=== PATIENT | male | born 1975 | race American Indian/Alaskan Native ===

== ENCOUNTER 2020-11-29 22:54 | Inpatient (IN) | payer OTHER ==
[2020-11-29] MEDS ORDERED: ACETAMINOPHEN 500 MG TAB PO STA (23:23)
--- NOTE | 2020-11-29 23:24 | Event Note ---
ED Screening Note Date of service: 11/29/20 Time: 23:23 ED Screening Note: c/o PEREZ x 3-4 days +neck pain denies cough or SOB hx of HTN temp 103, pt tachycardic This initial assessment/diagnostic orders/clinical plan/treatment(s) is/are subject to change based on patients health status, clinical progression and re- assessment by fellow clinical providers in the ED. Further treatment and workup at subsequent clinical providers discretion. Patient/guardian urged not to elope from the ED as their condition may be serious if not clinically assessed and managed. Initial orders include: labs blood cultures tylenol
[2020-11-30] LABS: Hematocrit 46.2 % (35.5-45.6); Hemoglobin 15.2 gm/dl (11.8-15.2); Mean Corpuscular HGB Conc 33 % (32-34); Mean Corpuscular Volume 85 fl (84-94); Platelet Count 175 K/mm3 (140-440); Red Blood Count 5.45 M/mm3 (3.65-5.03); Red Cell Distribution Width 14.1 % (13.2-15.2)
[2020-11-30 00:20] LABS: Albumin 4.1 g/dL (3.9-5); Calcium 9.1 mg/dL (8.4-10.2)
[2020-11-30] MEDS ORDERED: ONDANSETRON 4 MG/2 ML INJ IV ONE ×2 (00:33→00:37)
[2020-11-30] MEDS ORDERED: fentaNYL 100 MCG/2 ML INJ IV ONE (00:37)
[2020-11-30] MEDS ORDERED: SODIUM CHLORIDE 0.9% 1000 ML 1,000 ML IV ONE (00:37)
[2020-11-30] MEDS: fentaNYL 100 MCG/2 ML INJ IV ONE ×2 (00:37→00:40)
--- NOTE | 2020-11-30 00:43 | Emergency Department Report ---
HPI - General Chief Complaint: Headache Time Seen by Provider: 11/29/20 23:22 - HPI HPI: Room 25 The patient is a 45-year-old male present with a chief complaint of headache. Patient states for the past 3 to 4 days he has had a constant headache at the calvarium and retro-orbital region. Patient has nausea vomiting in addition to neck pain. Patient denies history of cough. Patient currently gives his pain a score of 10/10. Patient noted to be febrile in triage to 103.2 F ED Past Medical Hx - Past Medical History Hx Hypertension: Yes - Surgical History Past Surgical History?: Yes Additional Surgical History: hernia repair - Family History Family history: no significant - Social History Smoking Status: Former Smoker (None x20 years) Substance Use Type: None (Denies illicit drug use), Alcohol (Occasional) ED Review of Systems ROS: Stated complaint: HEADACHE;SINUS PRESSURE;NAUSEA Other details as noted in HPI Constitutional: fever Eyes: other (Retro-orbital pain) ENT: denies: throat pain Respiratory: denies: cough Cardiovascular: denies: chest pain Endocrine: no symptoms reported Gastrointestinal: nausea, vomiting Genitourinary: denies: dysuria Musculoskeletal: denies: back pain Neurological: headache Physical Exam - Physical Exam Vital Signs: Vital Signs 11/29/20 23:21 Temperature 103.2 F H Pulse Rate 127 H Respiratory 18 Rate Blood Pressure 147/96 O2 Sat by Pulse 95 Oximetry Physical Exam: GENERAL: The patient is well-developed well-nourished male lying on stretcher appearing to be in mild discomfort. [] HEENT: Normocephalic. Atraumatic. Extraocular motions are intact. Patient has moist mucous membranes. NECK: Supple. No meningitic signs are noted. There is no nuchal rigidity CHEST/LUNGS: Clear to auscultation. There is no respiratory distress noted. HEART/CARDIOVASCULAR: Regular. There is no tachycardia. There is no gallop rub or murmur. ABDOMEN: Abdomen is soft, nontender. Patient has normal bowel sounds. There is no abdominal distention. SKIN: There is no rash. There is no edema. There is no diaphoresis. NEURO: The patient is awake, alert, and oriented. The patient is cooperative. The patient has no focal neurologic deficits. The patient has normal speech and gait. Cranial nerves II through XII grossly intact MUSCULOSKELETAL: There is no evidence of acute injury. ED Course Vital Signs 11/29/20 23:21 Temperature 103.2 F H Pulse Rate 127 H Respiratory 18 Rate Blood Pressure 147/96 O2 Sat by Pulse 95 Oximetry - Lumbar Puncture Consent Obtained: verbal consent, written consent Time Out Performed: Yes Indication for Procedure: headache, fever work up Patient Position: Sitting Upright/Leaning F Skin Prep: Povidone-Iodine 1% Local Anesthetic Used: Lidocaine 1% Amount of anesthesia used (mls): 5 Spinal Needle Gauge: 20G Spinal Needle Length: 3.5in Interspace Used: L4-L5 Complications: unable to obtain CSF Patient Tolerated Procedure: no complications ED Medical Decision Making - Lab Data Result diagrams: 11/29/20 23:32 11/29/20 23:32 Laboratory Tests 11/29/20 11/29/20 11/29/20 23:32 23:32 23:32 WBC 7.7 RBC 5.45 H Hgb 15.2 Hct 46.2 H MCV 85 MCH 28 MCHC 33 RDW 14.1 Plt Count 175 Sodium 132 L Potassium 3.4 L Chloride 91.4 L Carbon Dioxide 21 L Anion Gap 23 BUN 20 Creatinine 1.7 H Estimated GFR 53 BUN/Creatinine Ratio 12 Glucose 116 H Lactic Acid 1.30 Calcium 9.1 Total Bilirubin 0.60 AST 39 ALT 40 Alkaline Phosphatase 87 Total Protein 8.4 H Albumin 4.1 Albumin/Globulin Ratio 1.0 - Radiology Data Radiology results: report reviewed (CT head, chest x-ray), image reviewed (CT head, chest x-ray) interpreted by me: Chest [id number] right lung, no definite focal infiltrates. No pneumothorax [facility] [address] [place] [address] Cat Scan Report Signed Patient: THOR BRANNON MR# : [id number] : 1975 Acct:[id number] Age/Sex: 45 / M ADM Date: 11/29/20 Loc: ED Attending Dr: Ordering Physician: FRANCES MULLER MD Date of Service: 11/30/20 Procedure(s): CT head/brain wo con Accession Number(s): [id number] cc: FRANCES MULLER MD CT head without contrast INDICATION : Headache, fever. TECHNIQUE: Axial imaging performed from the skull apex through the skull base without the use of contrast. All CT scans at this location are performed using CT dose reduction for ALARA by means of automated exposure control. COMPARISON: None FINDINGS: Parenchyma: No mass, stroke or hemorrhage. Ventricles: Ventricles are normal in size and appear symmetric. Soft tissues: Soft tissues including the orbits appear normal. Bones: No acute osseous abnormality. Sinuses: Sinuses and mastoid air cells are clear. IMPRESSION: No acute abnormality. Signer Name: Geovany Gaines MD Signed: 11/30/2020 1:20 AM Workstation Name: [id number] Transcribed By: NGOZI Dictated By: Geovany Gaines MD Electronically Authenticated By: Geovany Gaines MD Signed Date/Time: 11/30/20 0120 DD/ 011 TD/TT: Print [facility] [address] [place] [address] XRay Report Signed Patient: THOR BRANNON MR# : [id number] : 1975 Acct:[id number] Age/Sex: 45 / M ADM Date: 11/29/20 Loc: ED Attending Dr: Ordering Physician: FRANCES MULLER MD Date of Service: 11/30/20 Procedure(s): XR chest 1V ap Accession Number(s): [id number] cc: FRANCES MULLER MD Fluoro Time In Minutes: CHEST 1 VIEW 11/30/2020 1:55 AM INDICATION / CLINICAL INFORMATION: Fever. COMPARISON: None available. FINDINGS: SUPPORT DEVICES: None. HEART / MEDIASTINUM: No significant abnormality. Mild widening of the superior mediastinum on the right. LUNGS / PLEURA: No significant pulmonary or pleural abnormality. Lung volumes are diminished. No pleural fluid. ADDITIONAL FINDINGS: No significant additional findings. IMPRESSION: 1. Mildly diminished lung volumes. 2. Mild widening the superior mediastinum on the right. This is likely vascular in origin. Recommend follow-up PA and lateral chest. Signer Name: Geovany Gaines MD Signed: 11/30/2020 2:23 AM Workstation Name: [id number] Transcribed By: ES Dictated By: Geovany Gaines MD Electronically Authenticated By: Geovany Gaines MD Signed Date/Time: 11/30/20222 DD/ 0 TD/TT: Print Cancel - Differential Diagnosis Meningitis, sinusitis, intracranial abscess, headache, URI Critical care attestation.: If time is entered above; I have spent that time in minutes in the direct care of this critically ill patient, excluding procedure time. ED Disposition Clinical Impression: Suspected infectious meningitis, Fever, Headache Disposition: OP ADMIT IP TO THIS HOSP Is pt being admited?: Yes Does the pt Need Aspirin: No Condition: Fair Referrals: PRIMARY CARE,MD [Primary Care Provider] - 3-5 Days Time of Disposition: 02:34 (Hospitalist paged (Dr He))
--- NOTE | 2020-11-30 01:24 | Cat Scan Report ---
CT head without contrast INDICATION : Headache, fever. TECHNIQUE: Axial imaging performed from the skull apex through the skull base without the use of con trast. All CT scans at this location are performed using CT dose reduction for ALARA by means of aut omated exposure control. COMPARISON: None FINDINGS: Parenchyma: No mass, stroke or hemorrhage. Ventricles: Ventricles are normal in size and appear symmetric. Soft tissues: Soft tissues including the orbits appear normal. Bones: No acute osseous abnormality. Sinuses: Sinuses and mastoid air cells are clear. IMPRESSION: No acute abnormality. Signer Name: Geovany Gaines MD Signed: 11/30/2020 1:20 AM Workstation Name: [id number]
[2020-11-30] MEDS ORDERED: cefTRIAXone/NS 2 GM/100 ML 2 GM/100 ML BAG IV ONE (01:29)
[2020-11-30] MEDS ORDERED: VANCOMYCIN/NS 1 GM/250 ML 1 GM/250 ML BAG IV ONE ×2 (01:56→04:00)
--- NOTE | 2020-11-30 02:27 | XRay Report ---
CHEST 1 VIEW 11/30/2020 1:55 AM INDICATION / CLINICAL INFORMATION: Fever. COMPARISON: None available. FINDINGS: SUPPORT DEVICES: None. HEART / MEDIASTINUM: No significant abnormality. Mild widening of the superior mediastinum on the rig ht. LUNGS / PLEURA: No significant pulmonary or pleural abnormality. Lung volumes are diminished. No pleu ral fluid. ADDITIONAL FINDINGS: No significant additional findings. IMPRESSION: 1. Mildly diminished lung volumes. 2. Mild widening the superior mediastinum on the right. This is likely vascular in origin. Recommend follow-up PA and lateral chest. Signer Name: Geovany Gaines MD Signed: 11/30/2020 2:23 AM Workstation Name: [id number]
[2020-11-30] MEDS ORDERED: MAGNESIUM HYDROXIDE (MOM) ORAL LIQD UDC PO PRN (02:57)
--- NOTE | 2020-11-30 03:06 | History and Physical Report ---
History of Present Illness Date of examination: 11/30/20 Date of admission: 11/30/2020 Chief complaint: Headache History of present illness: 45-year-old -[place] male presenting to emergency room today with a 3 to 4-day history of headache which has been constant. Headache is said to pain radiating towards the back of his eyes. He has also had associated nausea and vomiting and some neck pain. On a scale of 10 pain is about 10/10 in severity. Patient denies any blurry vision, no chest pain or shortness of breath, no abdominal pain, no hematuria or dysuria. Patient denies any sick contacts and no recent travel. Denies any contact with anyone with COVID-19. Upon arrival in the emergency room patient had a temperature of about 103.2 F. Work-up in the emergency room today, labs reveals mild hyponatremia of 132 and mild hypokalemia of 3.4. Chest x-ray and CT scan of the head were unremarkable. Attempts were made to do lumbar puncture in the ER which was unsuccessful. Patient is being started on empiric IV antibiotics for possible meningitis. Past History Past Medical History: hypertension Past Surgical History: hernia repair Social history: smoking (Former smoker), alcohol abuse (Occasional alcohol) Family history: no significant family history Medications and Allergies Allergies Allergy/AdvReac Type Severity Reaction Status Date / Time No Known Allergies Allergy Verified 11/29/20 23:31 Active Meds: Active Medications Acetaminophen (Acetaminophen 325 Mg Tab) 650 mg PO Q4H PRN PRN Reason: Pain MILD(1-3)/Fever >100.5/PEREZ Vancomycin HCl (Vancomycin/Ns 1 Gm/250 Ml) 1 gm in 250 mls @ 167.007 mls/hr IV ONCE ONE; Protocol Stop: 11/30/20 03:25 Last Admin: 11/30/20 02:32 Dose: 167.007 mls/hr Documented by: Sodium Chloride (Nacl 0.9% 1000 Ml) 1,000 mls @ 125 mls/hr IV DIRECT TERESA Magnesium Hydroxide (Magnesium Hydroxide (Mom) Oral Liqd Udc) 30 ml PO Q4H PRN PRN Reason: Constipation Morphine Sulfate (Morphine 2 Mg/1 Ml Inj) 2 mg IV Q4H PRN PRN Reason: Pain, Moderate (4-6) Ondansetron HCl (Ondansetron 4 Mg/2 Ml Inj) 4 mg IV Q8H PRN PRN Reason: Nausea And Vomiting Sodium Chloride (Sodium Chloride 0.9% 10 Ml Flush Syringe) 10 ml IV BID TERESA Sodium Chloride (Sodium Chloride 0.9% 10 Ml Flush Syringe) 10 ml IV PRN PRN PRN Reason: LINE FLUSH Review of Systems Constitutional: fever, chills Ears, nose, mouth and throat: no nasal congestion, no sore throat Cardiovascular: no chest pain, no palpitations Respiratory: no cough, no shortness of breath Gastrointestinal: nausea, vomiting, no abdominal pain Genitourinary Male: no dysuria, no hematuria, no nocturia Musculoskeletal: neck pain, no low back pain Integumentary: no rash, no pruritis Neurological: headaches, no confusion Psychiatric: no anxiety, no depression Endocrine: no polyphagia, no polydipsia, no polyuria, no nocturia Exam - Constitutional Vitals: Temp Pulse Resp BP Pulse Ox 103.2 F H 118 H 16 150/80 92 11/29/20 23:21 11/30/20 00:43 11/30/20 01:40 11/30/20 00:43 11/30/20 00:43 General appearance: Present: no acute distress, well-nourished - EENT Eyes: Present: PERRL, EOM intact. Absent: scleral icterus ENT: hearing intact, clear oral mucosa, dentition normal - Neck Neck: Present: supple, normal ROM - Respiratory Respiratory effort: normal Respiratory: bilateral: CTA - Cardiovascular Rhythm: regular Heart Sounds: Present: S1 & S2. Absent: gallop, systolic murmur, diastolic murmur, rub, click - Extremities Extremities: no ischemia, pulses intact, pulses symmetrical, No edema, normal temperature, normal color, Full ROM Peripheral Pulses: within normal limits - Abdominal General gastrointestinal: Present: soft, non-tender, non-distended, normal bowel sounds. Absent: mass - Integumentary Integumentary: Present: clear, warm, dry. Absent: rash - Musculoskeletal Musculoskeletal: strength equal bilaterally - Psychiatric Psychiatric: appropriate mood/affect, intact judgment & insight, memory intact, cooperative - Neurologic Neurologic: CNII-XII intact, no focal deficits, moves all extremities Results - Labs CBC & Chem 7: 11/29/20 23:32 11/29/20 23:32 Labs: Abnormal lab results 11/29/20 11/29/20 Range/Units 23:32 23:32 RBC 5.45 H (3.65-5.03) M/mm3 Hct 46.2 H (35.5-45.6) % Sodium 132 L (137-145) mmol/L Potassium 3.4 L (3.6-5.0) mmol/L Chloride 91.4 L (98-107) mmol/L Carbon Dioxide 21 L (22-30) mmol/L Creatinine 1.7 H (0.8-1.3) mg/dL Glucose 116 H (75-100) mg/dL Total Protein 8.4 H (6.3-8.2) g/dL Assessment and Plan - Patient Problems (1) Suspected infectious meningitis Current Visit: Yes Status: Acute Plan to address problem: Patient placed on empiric IV antibiotics. We will place consult to interventional radiology for lumbar puncture. (2) Headache Current Visit: Yes Status: Acute Plan to address problem: Possibly secondary to suspected meningitis. Patient will be placed on analgesic medication. Will await CSF studies. (3) DVT prophylaxis Current Visit: Yes Status: Acute Plan to address problem: Patient placed on sequential compression device. (4) Full code status Current Visit: Yes Status: Acute
[2020-11-30] MEDS ORDERED: VANCOMYCIN PHARMACY TO DOSE IV SCH (04:00)
[2020-11-30 04:14] LABS: Band Neutrophils # (Manual) 0.2 K/mm3; Total Cells Counted 100
[2020-11-30 04:15] LABS: Anisocytosis 1+; Platelet Estimate Consistent w Auto
[2020-11-30] MEDS ORDERED: POTASSIUM CHLORIDE 10 MEQ 10 MEQ/100 ML BAG IV ONE (05:11)
[2020-11-30] MEDS: SODIUM CHLORIDE 0.9% 1000 ML 1,000 ML IV SCH ×2 (06:11→23:09)
[2020-11-30] MEDS: ACETAMINOPHEN 325 MG TAB PO PRN ×4 (06:12→21:44)
[2020-11-30] MEDS ORDERED: POTASSIUM CHLORIDE ER 20 MEQ TAB PO SCH (08:00)
--- NOTE | 2020-11-30 08:52 | Event Note ---
Date: 11/30/20 Interventional radiology does not perform lumbar punctures, biopsies, paracentesis, or thoracentesis. Please coordinate with diagnostic radiology. Can order with [place] LUMBAR PUNCTURE.
--- NOTE | 2020-11-30 09:57 | Progress Note ---
Assessment and Plan Assessment and plan: Assessment and Plan - Patient Problems (1) Suspected infectious meningitis Current Visit: Yes Status: Acute Plan to address problem: Patient placed on empiric IV antibiotics. We will place consult to interventional radiology for lumbar puncture. (2) Headache Current Visit: Yes Status: Acute Plan to address problem: Possibly secondary to suspected meningitis. Patient will be placed on analgesic medication. Will await CSF studies. (3) DVT prophylaxis Current Visit: Yes Status: Acute Plan to address problem: Patient placed on sequential compression device. (4) Full code status Current Visit: Yes Status: Acute 11/30/20 Patient is seen and examined. Patient complained of headache 8-10 over 10 as stated nausea and some neck pain No blurry vision. No neck rigidity Patient is on Rocephin 2 g IV every 12 hours We will do the blood culture sputum culture Lumbar puncture is ordered. Will await the CSF studies Waiting for ID evaluation Recheck CBC BMP in the morning. History Interval history: Patient is seen and examined Patient chart and medications reviewed Patient complaining of headache 8-10 over 10 as stated nausea vomiting and some neck pain. No blurred vision Vitals are noted Hospitalist Physical - Constitutional Vitals: Temp Pulse Resp BP Pulse Ox 100.8 F H 100 H 20 136/81 99 11/30/20 06:01 11/30/20 06:01 11/30/20 06:01 11/30/20 06:01 11/30/20 06:01 General appearance: Present: no acute distress, well-nourished - EENT Eyes: Present: PERRL, EOM intact ENT: hearing intact, clear oral mucosa - Neck Neck: Present: supple, normal ROM - Respiratory Respiratory effort: normal Respiratory: bilateral: CTA - Cardiovascular Rhythm: regular Heart Sounds: Present: S1 & S2 - Extremities Extremities: no ischemia Peripheral Pulses: within normal limits - Abdominal General gastrointestinal: soft, non-tender, non-distended, normal bowel sounds - Integumentary Integumentary: Present: clear, warm, dry - Psychiatric Psychiatric: appropriate mood/affect, intact judgment & insight - Neurologic Neurologic: CNII-XII intact, moves all extremities - Allied Health Allied health notes reviewed: nursing Results - Labs CBC & Chem 7: 11/29/20 23:32 11/29/20 23:32 Labs: Laboratory Last Values WBC 7.7 K/mm3 (4.5-11.0) 11/29/20 23: RBC 5.45 M/mm3 (3.65-5.03) H 11/29/20 23: Hgb 15.2 gm/dl (11.8-15.2) 11/29/20 23: Hct 46.2 % (35.5-45.6) H 11/29/20 23:32 MCV 85 fl (84-94) 11/29/20 23: MCH 28 pg (28-32) 11/29/20 23: MCHC 33 % (32-34) 11/29/20 23: RDW 14.1 % (13.2-15.2) 11/29/20: Plt Count 175 K/mm3 (140-440) 11/29/20 23: Add Manual Diff Complete 11/29/20 23: Total Counted 100 11/29/20 23:32 Seg Neuts % (Manual) 88.0 % (40.0-70.0) H 11/29/20 23: Band Neutrophils % 3.0 % 11/29/20 23: Lymphocytes % (Manual) 6.0 % (13.4-35.0) L 11/29/20 23: Monocytes % (Manual) 3.0 % (0.0-7.3) 11/29/20: Nucleated RBC % Not Reportable 11/29/20 23: Seg Neutrophils # Man 6.8 K/mm3 (1.8-7.7) 11/29/20 23:32 Band Neutrophils # 0.2 K/mm3 11/29/20 23:32 Lymphocytes # (Manual) 0.5 K/mm3 (1.2-5.4) L 11/29/20 23:32 Abs React Lymphs (Man) 0.0 K/mm3 11/29/20 23:32 Monocytes # (Manual) 0.2 K/mm3 (0.0-0.8) 11/29/20 23: Eosinophils # (Manual) 0.0 K/mm3 (0.0-0.4) 11/29/20 23:32 Basophils # (Manual) 0.0 K/mm3 (0.0-0.1) 11/29/20 23: Metamyelocytes # 0.0 K/mm3 11/29/20 23:32 Myelocytes # 0.0 K/mm3 11/29/20 23:32 Promyelocytes # 0.0 K/mm3 11/29/20 23:32 Blast Cells # 0.0 K/mm3 11/29/20 23:32 WBC Morphology Not Reportable 11/29/20 23:32 Hypersegmented Neuts Not Reportable 11/29/20 23:32 Hyposegmented Neuts Not Reportable 11/29/20 23:32 Hypogranular Neuts Not Reportable 11/29/20 23:32 Smudge Cells Not Reportable 11/29/20 23:32 Toxic Granulation Not Reportable 11/29/20 23:32 Toxic Vacuolation Not Reportable 11/29/20 23:32 Dohle Bodies Not Reportable 11/29/20 23:32 Pelger-Huet Anomaly Not Reportable 11/29/20 23:32 Isabel Rods Not Reportable 11/29/20 23:32 Platelet Estimate Consistent w auto 11/29/20 23:32 Clumped Platelets Not Reportable 11/29/20 23:32 Plt Clumps, EDTA Not Reportable 11/29/20 23:32 Large Platelets Not Reportable 11/29/20 23:32 Giant Platelets Not Reportable 11/29/20 23:32 Platelet Satelliting Not Reportable 11/29/20 23:32 Plt Morphology Comment Not Reportable 11/29/20 23:32 RBC Morphology Not Reportable 11/29/20 23:32 Dimorphic RBCs Not Reportable 11/29/20 23:32 Polychromasia Not Reportable 11/29/20 23:32 Hypochromasia Not Reportable 11/29/20 23:32 Poikilocytosis Not Reportable 11/29/20 23:32 Anisocytosis 1+ 11/29/20 23:32 Microcytosis Not Reportable 11/29/20 23:32 Macrocytosis Not Reportable 11/29/20 23:32 Spherocytes Not Reportable 11/29/20 23:32 Pappenheimer Bodies Not Reportable 11/29/20 23:32 Sickle Cells Not Reportable 11/29/20 23:32 Target Cells Not Reportable 11/29/20 23:32 Tear Drop Cells Not Reportable 11/29/20 23:32 Ovalocytes Not Reportable 11/29/20 23:32 Helmet Cells Not Reportable 11/29/20 23:32 Moss-Dubois Bodies Not Reportable 11/29/20 23:32 [place] Rings Not Reportable 11/29/20 23:32 Estefanía Cells Not Reportable 11/29/20 23:32 Bite Cells Not Reportable 11/29/20 23:32 Crenated Cell Not Reportable 11/29/20 23:32 Elliptocytes Not Reportable 11/29/20 23:32 Acanthocytes (Spur) Not Reportable 11/29/20 23:32 Rouleaux Not Reportable 11/29/20 23:32 Hemoglobin C Crystals Not Reportable 11/29/20 23:32 Schistocytes Not Reportable 11/29/20 23:32 Malaria parasites Not Reportable 11/29/20 23:32 Ranulfo Bodies Not Reportable 11/29/20 23:32 Hem Pathologist Commnt No 11/29/20 23:32 Sodium 132 mmol/L (137-145) L 11/29/20 23:32 Potassium 3.4 mmol/L (3.6-5.0) L 11/29/20 23:32 Chloride 91.4 mmol/L (98-107) L 11/29/20 23:32 Carbon Dioxide 21 mmol/L (22-30) L 11/29/20 23:32 Anion Gap 23 mmol/L 11/29/20 23:32 BUN 20 mg/dL (9-20) 11/29/20 23:32 Creatinine 1.7 mg/dL (0.8-1.3) H 11/29/20 23:32 Estimated GFR 53 ml/min 11/29/20 23:32 BUN/Creatinine Ratio 12 % 11/29/20 23:32 Glucose 116 mg/dL (75-100) H 11/29/20 23:32 Lactic Acid 1.30 mmol/L (0.7-2.0) 11/29/20 23:32 Calcium 9.1 mg/dL (8.4-10.2) 11/29/20 23:32 Total Bilirubin 0.60 mg/dL (0.1-1.2) 11/29/20 23:32 AST 39 units/L (5-40) 11/29/20 23:32 ALT 40 units/L (7-56) 11/29/20 23:32 Alkaline Phosphatase 87 units/L (35-129) 11/29/20 23:32 Total Protein 8.4 g/dL (6.3-8.2) H 11/29/20 23:32 Albumin 4.1 g/dL (3.9-5) 11/29/20 23:32 Albumin/Globulin Ratio 1.0 % 11/29/20 23:32 Microbiology: Microbiology 11/29/20 23:32 Peripheral/Venous Blood Culture - Preliminary Culture in Progress 11/29/20 23:26 Peripheral/Venous Blood Culture - Preliminary Culture in Progress Saravia/IV: Voiding Method Toilet Active Medications - Current Medications Current Medications: Generic Name Dose Route Start Last Admin Trade Name Freq PRN Reason Stop Dose Admin Acetaminophen 650 mg 11/30/20 02:57 11/30/20 06:12 Acetaminophen 325 Mg Tab PO 650 mg Q4H PRN Administration Pain MILD(1-3)/Fever >100.5/PEREZ Sodium Chloride 1,000 mls @ 125 mls/hr 11/30/20 03:00 11/30/20 06:11 Nacl 0.9% 1000 Ml IV 125 mls/hr DIRECT TERESA Administration Ceftriaxone Sodium 2 gm in 100 mls @ 200 mls/hr 11/30/20 14:00 Rocephin/Ns 2 Gm/100 Ml IV Q12H TERESA Protocol Vancomycin HCl 1,750 mg/ 535 mls @ 333.333 mls/hr 11/30/20 16:00 Sodium Chloride IV Q24H TERESA Magnesium Hydroxide 30 ml 11/30/20 02:57 Magnesium Hydroxide (Mom) Oral Liqd Udc PO Q4H PRN Constipation Morphine Sulfate 2 mg 11/30/20 02:57 Morphine 2 Mg/1 Ml Inj IV Q4H PRN Pain, Moderate (4-6) Ondansetron HCl 4 mg 11/30/20 02:57 Ondansetron 4 Mg/2 Ml Inj IV Q8H PRN Nausea And Vomiting Potassium Chloride 40 meq 11/30/20 08:00 11/30/20 09:39 Potassium Chloride Er 20 Meq Tab PO 11/30/20 11:00 40 meq ONCE TERESA Administration Sodium Chloride 10 ml 11/30/20 10:00 11/30/20 09:39 Sodium Chloride 0.9% 10 Ml Flush Syringe IV Not Given BID TERESA Sodium Chloride 10 ml 11/30/20 02:57 Sodium Chloride 0.9% 10 Ml Flush Syringe IV PRN PRN LINE FLUSH Nutrition/Malnutrition Assess - Dietary Evaluation Nutrition/Malnutrition Findings: Nutrition Notes Start: 11/30/20 09:06 Freq: Status: Active Protocol: Document 11/30/20 09:06 FANNY (Rec: 11/30/20 09:07 FANNY [id number]) Nutrition Notes Need for Assessment generated from: senior research manager Initial or Follow up Brief Note Subjective/Other Information RN screen for skin risk. No Agus score or wounds noted in chart. Nutrition Intervention Revisit per MD consult or patient Sign Off request: - Malnutrition Assessment Minimum of two criteria: No physical signs of malnutrition - Attestation Statement I have reviewed and agreed w/ Malnutrition eval & tx plan: Yes
[2020-11-30] MEDS: ONDANSETRON 4 MG/2 ML INJ IV PRN (11:24)
[2020-11-30] MEDS ORDERED: cefTRIAXone/NS 2 GM/100 ML 2 GM/100 ML BAG IV SCH (14:00)
--- NOTE | 2020-11-30 14:25 | Procedure Note ---
Date of procedure: 11/30/20 Pre-op diagnosis: meningitis Post-op diagnosis: same Procedure: flouro guided lumbar puncture Anesthesia: local Surgeon: ANASTASIIA LOBO Estimated blood loss: none Pathology: list (2-3 cc aspirated) Specimen disposition: to lab Condition: stable Disposition: floor
--- NOTE | 2020-11-30 14:32 | Fluoroscopy Report ---
LUMBAR PUNCTURE INDICATION : Meningitis, headache, fever PROCEDURE: The risks (including but not limited to bleeding, infection, and spinal headache) and corine efits were explained to the patient and informed consent was obtained. A time out procedure was perf ormed. The procedure site was prepped and draped in the usual sterile fashion and lidocaine was used for local anesthesia. Under fluoroscopic guidance, a 22-gauge spinal needle was advanced into the L2-3 interlaminar space. The opening pressure was 90 mm H2O. Only approximately 2-3 cc of CSF fluid could be obtained. This wa s placed in 2 separate CSF to 6 and sent to the laboratory for analysis. The patient tolerated the procedure well with no complications. IMPRESSION: Successful lumbar puncture but only 2-3 cc of CSF fluid could be obtained. Opening pressure was 90 mm H20. Fluoroscopic time: 0.8 Number of fluoroscopic images: 1 Signer Name: Abebe Copeland Jr, MD Signed: 11/30/2020 2:27 PM Workstation Name: [id number]
[2020-11-30 14:37] LABS: Appearance,CSF Clear
[2020-11-30 14:39] LABS: Red Blood Cell,CSF 124.3 /mm3 (0-0); White Blood Cell,CSF 10 /mm3 (1-10)
[2020-11-30 14:41] LABS: INR 1.28 (0.87-1.13)
[2020-11-30 14:42] LABS: Partial Thromboplastin Time 34.5 Sec. (24.2-36.6)
--- NOTE | 2020-11-30 15:15 | Consultation ---
History of Present Illness - Reason for Consult Consult date: 11/30/20 R/o meningitis Requesting physician: HEIDE THORNTON - History of Present Illness 45-year-old male without any medical history, admitted on 11/29/2020 secondary to a week history of severe diffuse headache associated with nausea and vomiting several times. Patient also complaining of neck pain. Headache is 10 out of 10 in severity. Patient denies any sick contact, recent travel, insect bites. Patient denies any drug, tobacco or alcohol abuse. He works in a warehouse. On arrival, temperature 103.2, HR 127, RR 18, O2 sat 95%, BP 147/96. Initial WBC 7.7. Hemoglobin 15.2. Platelet 175. Creatinine 1.7. SARS-CoV-2 PCR negative. CSF with 10 WBCs, 124 RBCs, protein 142. Blood cultures 11/29/[address] of the head unremarkable. Chest x-ray with widening of superior mediastinum. Review of Systems: positive in bold print General: Generalized malaise, body aches Cutaneous: rash, pruritus Head: headaches or injury Eyes: changes in vision, eye pain, double vision Ears: ear pain, ear discharge, ringing or hearing loss Nose: nose bleeding, stuffiness Mouth & throat: bleeding gums, horseness, no dental problems, or swollen glands Neck: no pain, node enlargement/lumps, tyroid enlargement or tenderness Respiratory: SOB, cough, MANCERA, wheezing, sputum, hemoptysis, pleuritic chest pain Cardiovascular: chest pain, leg edema, cyanosis, MANCERA, orthopnea Musculoskeletal: edema, deformities, pain Gastrointestinal: nausea, vomiting, hematemesis, diarrhea, constipation, melena, bright red blood in stools, fecal incontinence, jaundice Genitourinary/Reproductive: frequent urination, dysuria, hematuria, incontinence Neurogical: Headaches Psychiatric: stable mood; excessive anxiety, sadness or moodiness Past History Past Medical History: hypertension Past Surgical History: hernia repair Social history: smoking (Former smoker), alcohol abuse (Occasional alcohol) Family history: no significant family history Medications and Allergies Allergies Allergy/AdvReac Type Severity Reaction Status Date / Time No Known Allergies Allergy Verified 11/29/20 23:31 Active Meds: Active Medications Acetaminophen (Acetaminophen 325 Mg Tab) 650 mg PO Q4H PRN PRN Reason: Pain MILD(1-3)/Fever >100.5/PEREZ Last Admin: 11/30/20 11:23 Dose: 650 mg Documented by: Sodium Chloride (Nacl 0.9% 1000 Ml) 1,000 mls @ 125 mls/hr IV DIRECT TERESA Last Admin: 11/30/20 06:11 Dose: 125 mls/hr Documented by: Ceftriaxone Sodium (Rocephin/Ns 2 Gm/100 Ml) 2 gm in 100 mls @ 200 mls/hr IV Q12H [facility]; Protocol Last Admin: 11/30/20 14:26 Dose: 200 mls/hr Documented by: Vancomycin HCl 1,750 mg/ (Sodium Chloride) 535 mls @ 333.333 mls/hr IV Q24H TERESA Magnesium Hydroxide (Magnesium Hydroxide (Mom) Oral Liqd Udc) 30 ml PO Q4H PRN PRN Reason: Constipation Morphine Sulfate (Morphine 2 Mg/1 Ml Inj) 2 mg IV Q4H PRN PRN Reason: Pain, Moderate (4-6) Ondansetron HCl (Ondansetron 4 Mg/2 Ml Inj) 4 mg IV Q8H PRN PRN Reason: Nausea And Vomiting Last Admin: 11/30/20 11:24 Dose: 4 mg Documented by: Sodium Chloride (Sodium Chloride 0.9% 10 Ml Flush Syringe) 10 ml IV BID [facility] Last Admin: 11/30/20 09:39 Dose: Not Given Documented by: Sodium Chloride (Sodium Chloride 0.9% 10 Ml Flush Syringe) 10 ml IV PRN PRN PRN Reason: LINE FLUSH Physical Examination - Physical Exam Narrative exam: General appearance: Alert in NAD pleasant Eyes: anicteric sclerae, moist conjunctivae; no lid-lag; PERRLA HENT: Normocephalic, Atraumatic; normal external ears, nares open, oropharynx clear with moist mucous membranes and no oral thrush; normal hard and soft palate. Neck: supple, tracheal midline, no JVD Lungs: CTA, with normal respiratory effort and no intercostal retractions CV: RRR no murmur Abdomen: Soft, non-tender; no masses or hepatosplenomegaly Extremities: no edema, no cyanosis Skin: No rash. Psych: no agitated Neuro: alert and oriented x 3. Moving all extermities - Constitutional Vitals: Vital Signs Temp Pulse Resp BP Pulse Ox 100.7 F H 100 H 20 136/81 99 11/30/20 11:00 11/30/20 06:01 11/30/20 06:01 11/30/20 06:01 11/30/20 06:01 Temperature -Last 24 Hours Temperature 100.7 F Temperature 100.8 F Temperature 98.9 F Temperature 103.2 F Results - Labs CBC & Chem 7: 11/30/20 14:12 11/29/20 23:32 Labs: Abnormal lab results 11/29/20 11/29/20 11/30/20 Range/Units 23:32 23:32 14:12 RBC 5.45 H (3.65-5.03) M/mm3 Hct 46.2 H (35.5-45.6) % Seg Neuts % (Manual) 88.0 H (40.0-70.0) % Lymphocytes % (Manual) 6.0 L (13.4-35.0) % Lymphocytes # (Manual) 0.5 L (1.2-5.4) K/mm3 PT 15.8 H (12.2-14.9) Sec. INR 1.28 H (0.87-1.13) Sodium 132 L (137-145) mmol/L Potassium 3.4 L (3.6-5.0) mmol/L Chloride 91.4 L (98-107) mmol/L Carbon Dioxide 21 L (22-30) mmol/L Creatinine 1.7 H (0.8-1.3) mg/dL Glucose 116 H (75-100) mg/dL Total Protein 8.4 H (6.3-8.2) g/dL Assessment and Plan Cultures: Blood cultures 11/29/2020 no growth today. Assessment: 45-year-old male without any medical history, admitted on 11/29/2020 secondary to a week history of severe diffuse headache associated with nausea and vomiting several times: #SIRS rule out sepsis: present on admission with fever, tachycardia, hypotension; etiology unclear. Possible meningitis versus parameningeal source. CSF not consistent with meningitis however noted elevated protein at 142. Noted only 10 WBCs and 124 RBCs on CSF. Differential is pending. Blood cultures so far negative. Chest x-ray with finding of superior mediastinum. ? Deep neck soft tissue infection. #BALJEET: Likely due to sepsis. Recommendations: -Continue vancomycin IV for now -Stop ceftriaxone -Start Zosyn IV renally adjusted for now until deep neck tissue infection is ruled out. -Soft tissue neck CT/chest CT, STAT CMP if creat if normal -Follow-up blood cultures -Check CRP -Monitor creatinine -Follow up other CSF studies Will follow. Deisy Garcia MD Infectious Diseases Upholstery Mechanic [facility] M [phone] O [phone]
[2020-11-30 15:31] LABS: Total Cells Counted 43 /mm3
[2020-11-30 15:33] LABS: Basophils CSF 0 %
[2020-11-30] MEDS ORDERED: VANCOMYCIN 1,750 MG in SODIUM CHLORIDE 0.9% 500 ML 500 ML IV SCH (16:00)
[2020-11-30] MEDS ORDERED: PIPERACILLIN/TAZOBACTAM 3.375 3.375 GM/50 ML BAG IV SCH (16:00)
[2020-11-30 17:38] LABS: Albumin 3.6 g/dL (3.9-5); Calcium 8.1 mg/dL (8.4-10.2)
[2020-11-30] MEDS: PIPERACILLIN/TAZOBACTAM 3.375 3.375 GM/50 ML BAG IV SCH ×2 (18:26→20:34)
--- NOTE | 2020-11-30 19:22 | Cat Scan Report ---
CT NECK WITHOUT CONTRAST HISTORY: Sepsis COMPARISON: None. TECHNIQUE: Routine CT of the neck is performed without intravenous contrast. All CT scans at this [facility] ation are performed using CT dose reduction for ALARA by means of automated exposure control. CONTRAST: None FINDINGS: Skull Base: No significant abnormality. Parotid, Carotid, Retropharyngeal, Prevertebral, Pharyngeal Mucosal, and Fork Repairer Spaces: No abnorm al mass, enhancing lesion or other significant abnormality. Airway: Patent and without significant abnormality. Lymphatics: No lymphadenopathy. Vasculature: No significant abnormality. Osseous Structures: No significant abnormality Additional findings: Chest findings reported on separate chest CT report. IMPRESSION: 1. No acute findings in the neck. Signer Name: Channing Way MD Signed: 11/30/2020 7:18 PM Workstation Name: [id number]
--- NOTE | 2020-11-30 19:28 | Cat Scan Report ---
CT OF THE CHEST WITHOUT CONTRAST INDICATION / CLINICAL INFORMATION: Severe sepsis; pneumonia vs neck abscess. TECHNIQUE: All CT scans at this location are performed using CT dose reduction for ALARA by means of automated exposure control. COMPARISON: None available. FINDINGS: There is moderately severe dense consolidation in the right upper lobe and superior segment of the ri ght lower lobe. Air bronchograms are present. Small mediastinal lymph nodes are likely reactive. Ther e is mild subsegmental atelectasis in the left lower lung. The heart size is normal. No coronary artery calcification is present. The visualized upper abdomen i s unremarkable. No acute osseous abnormality is present. IMPRESSION: Moderately severe right upper lobe pneumonia and superior segment right lower lobe pneumo mariam. Signer Name: Joe Rocha MD Signed: 11/30/2020 7:23 PM Workstation Name: [id number]
[2020-12-01] MEDS: ACETAMINOPHEN 325 MG TAB PO PRN ×3 (04:45→23:37)
[2020-12-01] MEDS: PIPERACILLIN/TAZOBACTAM 3.375 3.375 GM/50 ML BAG IV SCH ×3 (05:21→13:29)
[2020-12-01] MEDS: SODIUM CHLORIDE 0.9% 1000 ML 1,000 ML IV SCH (06:19)
[2020-12-01 06:32] LABS: Basophils % (Auto) 0.2 % (0.0-1.8); Hematocrit 37.8 % (35.5-45.6); Hemoglobin 12.6 gm/dl (11.8-15.2); Lymphocytes # (Auto) 0.4 K/mm3 (1.2-5.4); Lymphocytes % (Auto) 7.9 % (13.4-35.0); Mean Corpuscular HGB Conc 33 % (32-34); Mean Corpuscular Volume 85 fl (84-94); Monocytes # (Auto) 0.4 K/mm3 (0.0-0.8); Monocytes % (Auto) 7.4 % (0.0-7.3); Platelet Count 162 K/mm3 (140-440); Red Blood Count 4.47 M/mm3 (3.65-5.03); Red Cell Distribution Width 14.5 % (13.2-15.2)
[2020-12-01 06:41] LABS: INR 1.36 (0.87-1.13)
[2020-12-01 06:50] LABS: Calcium 8.1 mg/dL (8.4-10.2)
[2020-12-01] MEDS: MORPHINE 2 MG/1 ML INJ IV PRN ×2 (09:31→13:30)
[2020-12-01] MEDS: ONDANSETRON 4 MG/2 ML INJ IV PRN ×2 (09:32→13:30)
--- NOTE | 2020-12-01 14:54 | Progress Note ---
Assessment and Plan Cultures: Blood cultures 11/29/2020 no growth today. CSF no growth today Assessment: 45-year-old male without any medical history, admitted on 11/29/2020 secondary to a week history of severe diffuse headache associated with nausea and vomiting several times: #SIRS rule out sepsis: present on admission with fever, tachycardia, hypotension; etiology unclear. Possible meningitis versus parameningeal source. CSF not consistent with meningitis however noted elevated protein at 142. Noted only 10 WBCs and 124 RBCs on CSF. Differential is pending. Blood cultures so far negative. Chest x-ray with finding of superior mediastinum. Likely secondary to multifocal pneumonia +/- temporal arteritis. CT neck unremarkable. #? Giant cell arteritis: ? Cranial arthritis patient with severe headache and very high CRP >37, lumbar puncture traumatic with WBCs=10 however very high protein. #Bilateral pneumonia: CT chest with bilateral consolidation with bronchograms. #BALJEET: Likely due to sepsis. Recommendations: -Check HIV -Check C3, C4, STACY, ANCA -Trial of prednisone 60 mg p.o. once a day ? Temporal arteritis -Continue vancomycin IV for now -Stop Zosyn -Start ceftriaxone 2 g IV every 12 hours -Add azithromycin for community-acquired pneumonia -Start acyclovir 10 mg/kg grams IV every 8 hours -If patient does not improve on acyclovir, ceftriaxone, vancomycin and prednisone, will consider repeating lumbar puncture -Follow-up blood cultures Discussed with attending Will follow. Deisy Garcia MD Infectious Diseases Systems Programmer Analyst [facility] ([facility]) M [phone] O [phone] Subjective Date of service: 12/01/20 Principal diagnosis: r/o meningitis Interval history: Frontal patient continues to complain of severe headache mainly frontal with scalp sensitivity. Temperature was 102. Objective - Exam Narrative Exam: General appearance: Alert in NAD pleasant Eyes: anicteric sclerae, moist conjunctivae; no lid-lag; PERRLA HENT: Normocephalic, Atraumatic; normal external ears, nares open, oropharynx clear + scalp sensitivity Neck: supple, tracheal midline, no JVD Lungs: CTA, with normal respiratory effort and no intercostal retractions CV: RRR no murmur Abdomen: Soft, non-tender; no masses or hepatosplenomegaly Extremities: no edema, no cyanosis Skin: No rash. Psych: no agitated Neuro: alert and oriented x 3. Moving all extermities - Constitutional Vitals: Vital Signs Temp Pulse Resp BP Pulse Ox 100.5 F H 101 H 20 132/79 94 12/01/20 04:14 12/01/20 04:14 12/01/20 04:14 12/01/20 04:14 12/01/20 04:14 Temperature -Last 24 Hours Temperature 100.5 F Temperature 99.5 F Temperature 103.0 F Temperature 99.7 F - Labs CBC & Chem 7: 12/01/20 05:33 12/01/20 05:33 Labs: Abnormal lab results 11/30/20 11/30/20 12/01/20 Range/Units 16:08 16:08 05:33 Lymph % (Auto) 7.9 L (13.4-35.0) % Hill % (Auto) 7.4 H (0.0-7.3) % Lymph # (Auto) 0.4 L (1.2-5.4) K/mm3 Seg Neutrophils % 84.5 H (40.0-70.0) % PT (12.2-14.9) Sec. INR (0.87-1.13) Sodium 133 L (137-145) mmol/L Potassium (3.6-5.0) mmol/L Chloride 97.0 L (98-107) mmol/L Carbon Dioxide 20 L (22-30) mmol/L BUN 25 H (9-20) mg/dL Creatinine 2.0 H (0.8-1.3) mg/dL Glucose 121 H (75-100) mg/dL Calcium 8.1 L (8.4-10.2) mg/dL AST 44 H (5-40) units/L C-Reactive Protein > 37.50 H (0.00-1.30) mg/dL Albumin 3.6 L (3.9-5) g/dL 12/01/20 12/01/20 Range/Units 05:33 05:33 Lymph % (Auto) (13.4-35.0) % Hill % (Auto) (0.0-7.3) % Lymph # (Auto) (1.2-5.4) K/mm3 Seg Neutrophils % (40.0-70.0) % PT 16.6 H (12.2-14.9) Sec. INR 1.36 H (0.87-1.13) Sodium 133 L (137-145) mmol/L Potassium 3.5 L (3.6-5.0) mmol/L Chloride (98-107) mmol/L Carbon Dioxide 20 L (22-30) mmol/L BUN 24 H (9-20) mg/dL Creatinine 1.9 H (0.8-1.3) mg/dL Glucose (75-100) mg/dL Calcium 8.1 L (8.4-10.2) mg/dL AST (5-40) units/L C-Reactive Protein (0.00-1.30) mg/dL Albumin (3.9-5) g/dL
[2020-12-01] MEDS: cefTRIAXone/NS 2 GM/100 ML 2 GM/100 ML BAG IV SCH (15:40)
[2020-12-01] MEDS: ACYCLOVIR 1,000 MG in SODIUM CHLORIDE 0.9% 100 ML IV SCH (17:31)
--- NOTE | 2020-12-02 00:32 | Progress Note ---
Assessment and Plan - Patient Problems (1) SIRS (systemic inflammatory response syndrome) Current Visit: Yes Status: Acute Plan to address problem: #SIRS rule out sepsis: present on admission with fever, tachycardia, hypotension; etiology unclear. Possible meningitis versus parameningeal source. CSF not consistent with meningitis however noted elevated protein at 142. Noted only 10 WBCs and 124 RBCs on CSF. Differential is pending. Blood culture s so far negative. Chest x-ray with finding of superior mediastinum. Likely secondary to multifocal pneumonia +/- temporal arteritis. CT neck unremarkable. (2) Bilateral pneumonia Current Visit: Yes Status: Acute Qualifiers: Pneumonia type: due to unspecified organism Plan to address problem: On Ceftriaxone and Zithromax HIV to be ruled out (3) Temporal arteritis Current Visit: Yes Status: Acute Plan to address problem: High possibility given Increased CRP and severe Headache High dose prednisone startd C3/C4 STACY ANCA requested (4) BALJEET (acute kidney injury) Current Visit: Yes Status: Acute Plan to address problem: Sec to VMN and dehydration IV Fluids for now (5) DVT prophylaxis Current Visit: Yes Status: Acute Plan to address problem: On Heparin and GI prophylaxis Subjective Date of service: 12/01/20 Principal diagnosis: r/o meningitis Interval history: 45-year-old -[place]ish male presenting to emergency room today with a 3 to 4-day history of headache which has been constant. Headache is said to pain radiating towards the back of his eyes. He has also had associated nausea and vomiting and some neck pain. On a scale of 10 pain is about 10/10 in severity. Patient denies any blurry vision, no chest pain or shortness of breath, no abdominal pain, no hematuria or dysuria. Patient denies any sick contacts and no recent travel. Denies any contact with anyone with COVID-19. Upon arrival in the emergency room patient had a temperature of about 103.2 F. Work-up in the emergency room today, labs reveals mild hyponatremia of 132 and mild hypokalemia of 3.4. Chest x-ray and CT scan of the head were unremarkable. Attempts were made to do lumbar puncture in the ER which was unsuccessful. Patient is being started on empiric IV antibiotics for possible meningitis. 12/01/20 Continues to have headache LP done High protein in CSF Some wbc's Objective - Constitutional Vitals: Vital Signs - 12hr 12/01/20 12/01/20 12/01/20 14:09 15:00 16:09 Temperature 102.9 F H 99.5 F Pulse Rate 102 H Respiratory 20 Rate Blood Pressure Blood Pressure 151/91 [Right] O2 Sat by Pulse 96 94 Oximetry 12/01/20 12/01/20 12/01/20 16:11 22:22 23:33 Temperature 99.4 F 99.9 F H Pulse Rate 91 H 96 H Respiratory 18 20 18 Rate Blood Pressure 149/95 169/86 145/94 Blood Pressure [Right] O2 Sat by Pulse 99 97 Oximetry 12/01/20 23:34 Temperature 101.1 F H Pulse Rate 96 H Respiratory 18 Rate Blood Pressure Blood Pressure [Right] O2 Sat by Pulse 96 Oximetry General appearance: Present: mild distress, well-nourished - EENT Eyes: PERRL, EOM intact ENT: hearing intact, clear oral mucosa Ears: bilateral: normal - Neck Neck: supple, normal ROM - Respiratory Respiratory effort: normal Respiratory: bilateral: CTA - Breasts Breasts: normal - Cardiovascular Heart rate: 78 Rhythm: regular Heart Sounds: Present: S1 & S2. Absent: gallop, rub Extremities: pulses intact, No edema, normal color, Full ROM - Gastrointestinal General gastrointestinal: Present: soft, non-tender, non-distended, normal bowel sounds - Genitourinary Male genitourinary: normal - Integumentary Integumentary: clear, warm, dry - Musculoskeletal Musculoskeletal: 1, strength equal bilaterally - Neurologic Neurologic: moves all extremities - Psychiatric Psychiatric: memory intact, appropriate mood/affect, intact judgment & insight - Labs CBC & Chem 7: 12/01/20 05:33 12/01/20 05:33 Labs: Abnormal lab results 12/01/20 12/01/20 12/01/20 Range/Units 05:33 05:33 05:33 Lymph % (Auto) 7.9 L (13.4-35.0) % Villalba % (Auto) 7.4 H (0.0-7.3) % Lymph # (Auto) 0.4 L (1.2-5.4) K/mm3 Seg Neutrophils % 84.5 H (40.0-70.0) % PT 16.6 H (12.2-14.9) Sec. INR 1.36 H (0.87-1.13) Sodium 133 L (137-145) mmol/L Potassium 3.5 L (3.6-5.0) mmol/L Carbon Dioxide 20 L (22-30) mmol/L BUN 24 H (9-20) mg/dL Creatinine 1.9 H (0.8-1.3) mg/dL Calcium 8.1 L (8.4-10.2) mg/dL
[2020-12-02] MEDS ORDERED: dexAMETHasone 4 MG/ML VIAL IV ONE (00:42)
[2020-12-02] MEDS: ACYCLOVIR 1,000 MG in SODIUM CHLORIDE 0.9% 100 ML IV SCH ×2 (00:50→08:46)
[2020-12-02] MEDS: cefTRIAXone/NS 2 GM/100 ML 2 GM/100 ML BAG IV SCH ×2 (04:13→15:32)
[2020-12-02 05:16] LABS: Hematocrit 36.3 % (35.5-45.6); Hemoglobin 12.3 gm/dl (11.8-15.2); Mean Corpuscular HGB Conc 34 % (32-34); Mean Corpuscular Volume 84 fl (84-94); Platelet Count 160 K/mm3 (140-440); Red Blood Count 4.31 M/mm3 (3.65-5.03); Red Cell Distribution Width 14.5 % (13.2-15.2)
[2020-12-02] MEDS: ACETAMINOPHEN 325 MG TAB PO PRN (05:31)
[2020-12-02 05:34] LABS: Calcium 8.3 mg/dL (8.4-10.2)
[2020-12-02] MEDS: SODIUM CHLORIDE 0.9% 1000 ML 1,000 ML IV SCH ×2 (05:34→19:02)
[2020-12-02 06:53] LABS: Total Cells Counted 100
[2020-12-02 06:54] LABS: Platelet Estimate Consistent w Auto; RBC Morphology Normal
[2020-12-02] MEDS ORDERED: VANCOMYCIN 1,750 MG in SODIUM CHLORIDE 0.9% 500 ML 500 ML IV SCH (10:00)
[2020-12-02] MEDS: predniSONE 20 MG TAB PO SCH (10:15)
[2020-12-02] MEDS: AZITHROMYCIN/NS 500 MG/250 ML 500 MG/250 ML BAG IV SCH (10:15)
--- NOTE | 2020-12-02 14:47 | Progress Note ---
Assessment and Plan Cultures: Blood cultures 11/29/2020 no growth today. CSF no growth today Assessment: 45-year-old male without any medical history, admitted on 11/29/2020 secondary to a week history of severe diffuse headache associated with nausea and vomiting several times: #SIRS rule out sepsis: present on admission with fever, tachycardia, hypotension; etiology unclear. Possible meningitis versus parameningeal source. CSF not consistent with meningitis however noted elevated protein at 142. Noted only 10 WBCs and 124 RBCs on CSF. Differential is pending. Blood cultures so far negative. Chest x-ray with finding of superior mediastinum. Likely secondary to multifocal pneumonia +/- temporal arteritis. CT neck u nremarkable. HIV negative. #? Giant cell arteritis: ? Cranial arteritis patient with severe headache, severe cutaneous tenderness, and very high CRP >37, lumbar puncture traumatic with WBCs=10 however very high protein. #Bilateral pneumonia: CT chest with bilateral consolidation with bronchograms. #BALJEET: Likely due to sepsis. Recommendations: -Follow-up C3, C4, STACY, ANCA -Recheck CRP -Continue trial of prednisone 60 mg p.o. once a day ? Temporal arteritis, patient is improving -Stop vancomycin and acyclovir -Continue ceftriaxone 2 g IV once a day -Continue azithromycin for community-acquired pneumonia -Follow-up blood cultures Monitor for 24 hours inpatient, if improvement continues, okay to discharge on prednisone taper and Levaquin 750 mg p.o. daily to complete 7 days Will follow. Deisy Garcia MD Infectious Diseases Linen Keeper [facility]) M [phone] O [phone] Subjective Principal diagnosis: r/o meningitis Interval history: Patient feels better, severe headache resolved, fever trending down. Objective - Exam Narrative Exam: General appearance: Alert in NAD pleasant Eyes: anicteric sclerae, moist conjunctivae; no lid-lag; PERRLA HENT: Normocephalic, Atraumatic; normal external ears, nares open, oropharynx clear + scalp sensitivity better Neck: supple, tracheal midline, no JVD Lungs: CTA, with normal respiratory effort and no intercostal retractions CV: RRR no murmur Abdomen: Soft, non-tender; no masses or hepatosplenomegaly Extremities: no edema, no cyanosis Skin: No rash. Psych: no agitated Neuro: alert and oriented x 3. Moving all extermities - Constitutional Vitals: Vital Signs Temp Pulse Resp BP Pulse Ox 97.7 F 93 H 24 131/85 98 12/02/20 11:19 12/02/20 11:19 12/02/20 11:19 12/02/20 11:19 12/02/20 11:19 Temperature -Last 24 Hours Temperature 97.7 F Temperature 99.0 F Temperature 99.8 F Temperature 101.1 F Temperature 99.9 F Temperature 99.4 F Temperature 99.5 F - Labs CBC & Chem 7: 12/02/20 04:23 12/02/20 04:23 Labs: Abnormal lab results 12/02/20 12/02/20 Range/Units 04:23 04:23 Seg Neuts % (Manual) 97.0 H (40.0-70.0) % Lymphocytes % (Manual) 1.0 L (13.4-35.0) % Lymphocytes # (Manual) 0.1 L (1.2-5.4) K/mm3 Sodium 133 L (137-145) mmol/L Carbon Dioxide 21 L (22-30) mmol/L BUN 23 H (9-20) mg/dL Creatinine 1.7 H (0.8-1.3) mg/dL Calcium 8.3 L (8.4-10.2) mg/dL
--- NOTE | 2020-12-02 15:44 | Progress Note ---
Assessment and Plan - Patient Problems (1) SIRS (systemic inflammatory response syndrome) Status: Acute Plan to address problem: #SIRS rule out sepsis: present on admission with fever, tachycardia, hypotension; etiology unclear. Possible meningitis versus parameningeal source. CSF not consistent with meningitis however noted elevated protein at 142. Noted only 10 WBCs and 124 RBCs on CSF. Differential is pending. Blood cultures so far negative. Chest x-ray with finding of superior mediastinum. Likely secondary to multifocal pneumonia +/- temporal arteritis. CT neck u nremarkable. (2) Bilateral pneumonia Status: Acute Qualifiers: Pneumonia type: due to unspecified organism Plan to address problem: On Ceftriaxone and Zithromax HIV to be ruled out (3) Temporal arteritis Status: Acute Plan to address problem: High possibility given Increased CRP and severe Headache High dose prednisone startd C3/C4 STACY ANCA requested (4) BALJEET (acute kidney injury) Status: Acute Plan to address problem: Sec to VMN and dehydration IV Fluids for now (5) DVT prophylaxis Status: Acute Plan to address problem: On Heparin and GI prophylaxis Subjective Date of service: 12/02/20 Principal diagnosis: r/o meningitis Interval history: 45-year-old -[place] male presenting to emergency room today with a 3 to 4-day history of headache which has been constant. Headache is said to pain radiating towards the back of his eyes. He has also had associated nausea and vomiting and some neck pain. On a scale of 10 pain is about 10/10 in severity. Patient denies any blurry vision, no chest pain or shortness of breath, no abdominal pain, no hematuria or dysuria. Patient denies any sick contacts and no recent travel. Denies any contact with anyone with COVID-19. Upon arrival in the emergency room patient had a temperature of about 103.2 F. Work-up in the emergency room today, labs reveals mild hyponatremia of 132 and mild hypokalemia of 3.4. Chest x-ray and CT scan of the head were unremarkable. Attempts were made to do lumbar puncture in the ER which was unsuccessful. Patient is being started on empiric IV antibiotics for possible meningitis. 12/01/20 Continues to have headache LP done High protein in CSF Some wbc's 12/02/2020 Patient feeling better. Steroids Possible temporal arteritis Objective - Constitutional Vitals: Vital Signs - 12hr 12/02/20 12/02/20 05:05 11:19 Temperature 99.0 F 97.7 F Pulse Rate 82 93 H Respiratory 20 24 Rate Blood Pressure 129/87 131/85 O2 Sat by Pulse 94 98 Oximetry General appearance: Present: no acute distress, well-nourished - EENT Eyes: PERRL, EOM intact ENT: hearing intact, clear oral mucosa Ears: bilateral: normal - Neck Neck: supple, normal ROM - Respiratory Respiratory effort: normal Respiratory: bilateral: CTA - Breasts Breasts: normal - Cardiovascular Rhythm: regular Heart Sounds: Present: S1 & S2. Absent: gallop, rub Extremities: pulses intact, No edema, normal color, Full ROM - Gastrointestinal General gastrointestinal: Present: soft, non-tender, non-distended, normal bowel sounds - Genitourinary Male genitourinary: normal - Integumentary Integumentary: clear, warm, dry - Musculoskeletal Musculoskeletal: 1, strength equal bilaterally - Neurologic Neurologic: moves all extremities - Psychiatric Psychiatric: memory intact, appropriate mood/affect, intact judgment & insight - Labs CBC & Chem 7: 12/02/20 04:23 12/02/20 04:23 Labs: Abnormal lab results 12/02/20 12/02/20 Range/Units 04:23 04:23 Seg Neuts % (Manual) 97.0 H (40.0-70.0) % Lymphocytes % (Manual) 1.0 L (13.4-35.0) % Lymphocytes # (Manual) 0.1 L (1.2-5.4) K/mm3 Sodium 133 L (137-145) mmol/L Carbon Dioxide 21 L (22-30) mmol/L BUN 23 H (9-20) mg/dL Creatinine 1.7 H (0.8-1.3) mg/dL Calcium 8.3 L (8.4-10.2) mg/dL
[2020-12-03] MEDS: cefTRIAXone/NS 2 GM/100 ML 2 GM/100 ML BAG IV SCH (03:31)
[2020-12-03] MEDS: SODIUM CHLORIDE 0.9% 1000 ML 1,000 ML IV SCH (03:38)
[2020-12-03] MEDS: predniSONE 20 MG TAB PO SCH (09:22)
[2020-12-03] MEDS: AZITHROMYCIN/NS 500 MG/250 ML 500 MG/250 ML BAG IV SCH (09:22)
--- NOTE | 2020-12-03 13:21 | Progress Note ---
Assessment and Plan Cultures: Blood cultures 11/29/2020 no growth today. CSF no growth today Assessment: 45-year-old male without any medical history, admitted on 11/29/2020 secondary to a week history of severe diffuse headache associated with nausea and vomiting several times: #SIRS rule out sepsis: fever resolved after steroids; etiology unclear. Possible meningitis versus parameningeal source. CSF not consistent with menin gitis however noted elevated protein at 142. Noted only 10 WBCs and 124 RBCs on CSF. Differential is pending. Blood cultures so far negative. Chest x-ray with finding of superior mediastinum. Likely secondary to multifocal pneumonia +/- temporal arteritis. CT neck unremarkable. HIV negative. #? Giant cell arteritis: improving on prednisone (excruciating headache/fever resolved) ? Cranial arteritis patient with severe headache, severe cutaneous tenderness, and very high CRP >37-->34, lumbar puncture traumatic with WBCs=10 however very high protein. #Bilateral pneumonia: CT chest with bilateral consolidation with bronchograms. #BALJEET: Likely due to sepsis. Recommendations: -Follow-up C3, C4, STACY, ANCA -pending -Continue trial of prednisone 60 mg p.o. once a day for temporal arteritis, patient is improving -Stop ceftriaxone and azithromycin -Okay to discharge on prednisone taper and Levaquin 750 mg p.o. daily to complete 7 days till 12/06 -Needs rheumatology evaluation as an outpatient Will follow. Deisy Garcia MD Infectious Diseases [employer]ailing [employer] [facility] M [phone] O [phone] Subjective Date of service: 12/03/20 Principal diagnosis: r/o meningitis Interval history: Patient feels great, headache resolved, no other complaints. Objective - Exam Narrative Exam: General appearance: Alert in NAD pleasant Eyes: anicteric sclerae, moist conjunctivae; no lid-lag; PERRLA HENT: Normocephalic, Atraumatic; normal external ears, nares open, oropharynx clear + scalp sensitivity resolved Neck: supple, tracheal midline, no JVD Lungs: CTA, with normal respiratory effort and no intercostal retractions CV: RRR no murmur Abdomen: Soft, non-tender; no masses or hepatosplenomegaly Extremities: no edema, no cyanosis Skin: No rash. Psych: no agitated Neuro: alert and oriented x 3. Moving all extermities - Constitutional Vitals: Vital Signs Temp Pulse Resp BP Pulse Ox 98.5 F 80 20 141/89 90 12/03/20 12:48 12/03/20 12:48 12/03/20 12:48 12/03/20 12:48 12/03/20 12:48 Temperature -Last 24 Hours Temperature 98.5 F Temperature 97.6 F Temperature 97.5 F Temperature 97.6 F Temperature 98.4 F Temperature 98.4 F Temperature 97.5 F - Labs CBC & Chem 7: 12/02/20 04:23 12/02/20 04:23 Labs: Abnormal lab results 12/02/20 Range/Units 04:23 C-Reactive Protein 34.60 H (0.00-1.30) mg/dL
[2020-12-03] MEDS ORDERED: levoFLOXacin 750 MG TAB PO SCH (14:00)
[2020-12-03 18:07] VITALS: BP 136/90
--- NOTE | 2020-12-03 18:33 | Discharge Summary ---
Providers - Providers Date of Admission: 11/30/20 02:37 Date of discharge: 12/03/20 Attending physician: MELINDA TINEO 11/30/20 02:57 Consult to Physician [CONS] Routine Comment: Consulting Provider: JONO WAYNE Physician Instructions: Reason For Exam: Meningitis Primary care physician: SOUND EDITOR Hospitalization Condition: Fair Hospital course: (1) SIRS (systemic inflammatory response syndrome) Temporal arteritis (2) Bilateral pneumonia Status: Acute Qualifiers: Pneumonia type: due to unspecified organism Plan to address problem: Treated adequately (3) Temporal arteritis Status: Acute Plan to address problem: Patient responding to steroids Patient to follow-up with regarding his C3-C4 and ANCA levels The still pending (4) BALJEET (acute kidney injury) Status: Acute Plan to address problem: Vasomotor nephropathy Resolved Explained in detail the diagnosis and prognosis and also gave work excuse as requested Disposition: DC-01 TO HOME OR SELFCARE Final Discharge Diagnosis (Prints w/discharge instructions): Temporal arteritis. Sirs - Discharge Diagnoses (1) SIRS (systemic inflammatory response syndrome) Status: Acute (2) Bilateral pneumonia Status: Acute Qualifiers: Pneumonia type: due to unspecified organism (3) Temporal arteritis Status: Acute (4) BALJEET (acute kidney injury) Status: Acute (5) DVT prophylaxis Status: Acute Core Measure Documentation - Palliative Care Palliative Care/ Comfort Measures: Not Applicable - Core Measures Any of the following diagnoses?: none Exam - Constitutional Vitals: Temp Pulse Resp BP Pulse Ox 98.8 F 74 20 136/90 97 12/03/20 17:33 12/03/20 17:33 12/03/20 17:33 12/03/20 17:33 12/03/20 17:33 General appearance: Present: no acute distress, well-nourished - EENT Eyes: Present: PERRL ENT: hearing intact, clear oral mucosa - Neck Neck: Present: supple, normal ROM - Respiratory Respiratory effort: normal Respiratory: bilateral: CTA - Cardiovascular Heart rate: 78 Rhythm: regular Heart Sounds: Present: S1 & S2. Absent: rub, click - Extremities Extremities: pulses symmetrical, No edema Peripheral Pulses: within normal limits - Abdominal General gastrointestinal: Present: soft, non-tender, non-distended, normal bowel sounds Male genitourinary: Present: normal - Integumentary Integumentary: Present: clear, warm, dry - Musculoskeletal Musculoskeletal: gait normal, strength equal bilaterally - Psychiatric Psychiatric: appropriate mood/affect, intact judgment & insight - Neurologic Neurologic: CNII-XII intact, moves all extremities - Allied Health Allied health notes reviewed: nursing, case management Plan Activity: no restrictions Diet: regular Follow up with: PRIMARY CARE, [Primary Care Provider] - 3-5 Days Prescriptions: levoFLOXacin [Levaquin] 750 mg PO QDAY #7 tablet Prednisone [predniSONE 10 mg (6-Day Pack, 21 Tabs)] 10 mg PO .TAPER #1 tab.ds.pk Prednisone [predniSONE 10 mg (6-Day Pack, 21 Tabs)] 10 mg PO .TAPER #1 tab.ds.pk
[2020-12-04] MEDS ORDERED: cefTRIAXone/NS 2 GM/100 ML 2 GM/100 ML BAG IV SCH (07:00)
[2020-12-06 23:06] LABS: ANA Screen, IFA Negative (Negative)
[2020-12-12 12:56] LABS: Myeloperoxidase Antibody <1.0 AI (<1.0)
== END 2020-12-03 19:42 | disposition home or self-care (01) | DRG 682 ==
LOC: ED 22:54 → 4A 11-30 02:37 → 3A 11-30 03:48
PROVIDERS: ADMIT Internal Medicine Geriatric Medicine; ATTEND Internal Medicine
PROC: 009U3ZX Drainage of Spinal Canal, Percutaneous Approach, Diagnostic (ICD-10-PCS; principal; 2020-11-30)
PROC: B01B1ZZ Fluoroscopy of Spinal Cord using Low Osmolar Contrast (ICD-10-PCS; 2020-11-30)
DX: N17.0 Acute kidney failure with tubular necrosis (principal); J18.9 Pneumonia, unspecified organism; R65.10 Systemic inflammatory response syndrome (SIRS) of non-infectious origin without acute organ dysfunction; E87.1 Hypo-osmolality and hyponatremia; R51.9 Headache, unspecified; Z20.822 Contact with and (suspected) exposure to COVID-19; I10 Essential (primary) hypertension; F10.10 Alcohol abuse, uncomplicated; F17.200 Nicotine dependence, unspecified, uncomplicated; M31.6 Other giant cell arteritis; E86.0 Dehydration; E87.6 Hypokalemia
CPT/HCPCS: 36415; 62270; 62328; 70450; 70490; 71045; 71250; 80048; 80053; 80202; 82140; 84160; 85007; 85025; 85049; 85610; 85730; 86021; 86038; 86140; 86160; 87040; 87116; 87806; 89051; 96365; 96375; G0378; J0133; J0456; J0696; J1100; J2270; J2405; J2543; J3010; J3370; J3480; J7030; J7040; J7512; U0003